=== PATIENT | male | born 1960 | race Hispanic/Latino ===

== ENCOUNTER 2018-01-17 01:00 | Emergency (ER) | payer MEDICAID, OTHER ==
[~2018-01-17 01:00] MED LIST: FURO40TA7 PO; PANT40TA25 PO; SPIR25TA PO
[2018-01-17 01:51] LABS: APPEARANCE,URINE Clear (CLEAR); BILIRUBIN,URINE Small (NEGATIVE); GLUCOSE, URINE (UA) Negative (NEGATIVE); KETONES,URINE Negative (NEGATIVE); LEUKOCYTE ESTERASE ,URINE Trace (NEGATIVE); NITRATE,URINE Positive (NEGATIVE); OCCULT BLOOD,URINE Large (NEGATIVE); PROTEIN,URINE POS 2+ (NEGATIVE)
[2018-01-17 01:52] LABS: AMPHET/METH SCREEN,URINE NEGATIVE (NEGATIVE); BARBITURATE SCREEN, URINE NEGATIVE (NEGATIVE); BENZODIAZEPINES SCREEN,URINE NEGATIVE (NEGATIVE); CANNABINOID SCREEN,URINE NEGATIVE (NEGATIVE); COCAINE SCREEN,URINE NEGATIVE (NEGATIVE); OPIATE SCREEN,URINE NEGATIVE (NEGATIVE); PHENCYCLIDINE SCREEN,URINE NEGATIVE (NEGATIVE)
[2018-01-17 01:53] LABS: COLOR,URINE Dark Yellow (YELLOW)
[2018-01-17 01:53] LABS: BASOPHILS % (AUTO) 0.5 % (0.0-5.0); HEMATOCRIT 28.9 % (42-54); LYMPHOCYTES % (AUTO) 20.9 % (21.0-51.0); MEAN CORPUSCULAR HEMOGLOBIN 32.5 pg (27.0-33.0); MEAN CORPUSCULAR HGB CONC 35.7 g/dL (32.0-36.0); MEAN CORPUSCULAR VOLUME 91.1 fL (79-99); MONOCYTES % (AUTO) 12.1 % (3.0-13.0); NEUTROPHILS % (AUTO) 57.5 % (40.0-77.0); PLATELET COUNT (AUTO) 79 K/uL (130-400); RED BLOOD CELL COUNT(AUTO) 3.17 MIL/uL (4.50-6.20); RED CELL DISTRIBUTION WIDTH 15.4 % (11.0-15.5); WHITE BLOOD COUNT (AUTO) 3.5 K/uL (4.8-10.8)
[2018-01-17 02:02] LABS: BACTERIA,URINE Few /HPF (None Seen); RBC,URINE 0-1 /HPF (0-1); WBC,URINE 0-1 /HPF (0-1)
[2018-01-17 02:03] LABS: CREATININE 1.2 mg/dL (0.5-1.5); POTASSIUM 4.4 mmol/L (3.5-5.1)
[2018-01-17 02:03] LABS: AMORPHOUS SEDIMENT,UR Few /LPF (None Seen); SQUAMOUS EPITHELIAL CELL,UR 0-2 /HPF (0-2)
[2018-01-17 02:07] LABS: BILIRUBIN,TOTAL 1.8 mg/dL (0.2-1.0); TOTAL PROTEIN, SERUM 6.7 g/dL (6.0-8.3)
[2018-01-17 02:25] LABS: INR 1.34 (0.85-1.15); PARTIAL THROMBOPLASTIN TIME 36.5 SEC (26.3-35.5)
[2018-01-17] MEDS ORDERED: FUROSEMIDE 10 MG/ML 2ML VIAL ONE (03:06)
[2018-01-17] MEDS ORDERED: FUROSEMIDE 10 MG/ML 4ML VIAL ONE (03:06)
== END 2018-01-17 06:28 | disposition home or self-care (01) ==
LOC: EDH 01:00
DX: E87.70 Fluid overload, unspecified (principal); K74.60 Unspecified cirrhosis of liver
CPT/HCPCS: 36415; 71045; 74176; 80053; 80305; 81001; 82140; 85025; 85610; 85651; 85730; 93005; 96374; 99285; G0480; J1940 ×2

== ENCOUNTER 2018-10-08 15:58 | Inpatient (IN) | payer MEDICAID, OTHER ==
[~2018-10-08] VITALS: Ht 165.1 cm; Wt 79.5 kg
[2018-10-08] MEDS ORDERED: ALBUMIN (HUMAN) 25% 100 ML IV ONE (16:50)
[2018-10-08] MEDS ORDERED: SODIUM CHLORIDE 0.9% 100 ML IV ONE (17:01)
[2018-10-08 17:07] LABS: BASOPHILS % (AUTO) 0.4 % (0.0-5.0); EOSINOPHILS % (AUTO) 2.8 % (0.0-8.0); LYMPHOCYTES % (AUTO) 9.5 % (21.0-51.0); MEAN CORPUSCULAR HEMOGLOBIN 30.7 pg (27.0-33.0); MONOCYTES % (AUTO) 7.6 % (3.0-13.0); NEUTROPHILS % (AUTO) 79.7 % (40.0-77.0); NUCLEATED RED BLOOD CELLS 0.1 % (0.0-0.19); PLATELET COUNT (AUTO) 70 K/uL (130-400); RED BLOOD CELL COUNT(AUTO) 3.56 MIL/uL (4.50-6.20); RED CELL DISTRIBUTION WIDTH 16.4 % (11.0-15.5); WHITE BLOOD COUNT (AUTO) 3.8 K/uL (4.8-10.8)
[2018-10-08 17:11] LABS: INR 1.34 (0.85-1.15); PARTIAL THROMBOPLASTIN TIME 35.7 SEC (26.3-35.5)
[2018-10-08 17:24] LABS: CARBON DIOXIDE 27 mmol/L (21-32); CHLORIDE 104 mmol/L (101-111); CREATININE 1.2 mg/dL (0.5-1.5); GLOMERULAR FILTR. RATE CALC 66 mL/min (>60); GLUCOSE,RANDOM 126 mg/dL (70-105); POTASSIUM 3.8 mmol/L (3.5-5.1); SODIUM SERUM 139 mmol/L (136-145); UREA NITROGEN, BLOOD 21 mg/dL (7-18)
[2018-10-08 17:35] LABS: ALANINE AMINOTRANSFERASE 84 U/L (12-78); ALBUMIN 2.3 g/dL (3.5-5.0); ASPARTATE AMINOTRANSFERASE 161 U/L (10-37); BILIRUBIN,TOTAL 4.1 mg/dL (0.2-1.0); CREATINE KINASE, TOTAL 115 U/L (21-232); MYOGLOBIN 65 ng/mL (10-92); TOTAL PROTEIN, SERUM 7.6 g/dL (6.0-8.3); TROPONIN I < 0.04 ng/mL (0.00-0.06)
[2018-10-08 17:51] LABS: AMMONIA 80 umol/L (11-32)
[2018-10-08 18:13] LABS: BILIRUBIN,URINE Moderate (NEGATIVE); COLOR,URINE Dark Yellow (YELLOW); GLUCOSE, URINE (UA) Negative (NEGATIVE); KETONES,URINE Negative (NEGATIVE); LEUKOCYTE ESTERASE ,URINE Trace (NEGATIVE); NITRATE,URINE Negative (NEGATIVE); OCCULT BLOOD,URINE Large (NEGATIVE); PROTEIN,URINE POS 2+ (NEGATIVE)
[2018-10-08 18:18] LABS: APPEARANCE,URINE HAZY (CLEAR)
[2018-10-08 18:25] LABS: PLATELET MORPHOLOGY COMMENT DECREASED
[2018-10-08 18:37] LABS: BACTERIA,URINE Rare /HPF (None Seen); MUCUS,URINE Few LPF (None Seen); SQUAMOUS EPITHELIAL CELL,UR 0-2 /HPF (0-2); WBC,URINE 0-1 /HPF (0-1)
[2018-10-08] MEDS ORDERED: ACETAMINOPHEN 325 MG TAB PO PRN ×2 (19:45)
[2018-10-08] MEDS ORDERED: ONDANSETRON HCL 4 MG/2 ML VIAL IV PRN (19:45)
[2018-10-08] MEDS ORDERED: MORPHINE SULFATE 4 MG/1ML SYG IV PRN (19:45)
[2018-10-08] MEDS ORDERED: SODIUM CHLORIDE 0.9% 1000ML 1,000 ML IV SCH (19:45)
[2018-10-08] MEDS ORDERED: LIDOCAINE HCL 2% VISCOUS 30 ML, MAG HYDROX/AL HYDROX/SIMETH 30 ML, BELLADONNA-PHENOBARB... PO PRN ×3 (19:45)
[2018-10-08] MEDS ORDERED: LIDOCAINE HCL 2% VISCOUS 60 ML, MAG HYDROX/AL HYDROX/SIMETH 60 ML, DICYCLOMINE HCL 40 MG PO PRN ×3 (20:00)
[2018-10-08] MEDS ORDERED: COMPOUND PO MISCELLANEOUS 1 EACH MISC MISC PRN (20:00)
[2018-10-08] MEDS ORDERED: IPRATROPIUM/ALBUTEROL SULFATE 3 ML SOLUTION IH ONE (20:05)
[2018-10-08 20:55] VITALS: BP 142/81
[2018-10-08] MEDS ORDERED: ENOXAPARIN SODIUM 30 MG/0.3 ML SQ SCH (21:00)
[2018-10-08] MEDS ORDERED: LACTULOSE 20 GM/30 ML UDCUP PO SCH (21:00)
[2018-10-08] MEDS: ALBUTEROL SULFATE 0.083% 2.5 MG/3 ML INH IH SCH (23:15)
[2018-10-08 23:30] VITALS: BP 142/81
[2018-10-08] MEDS: METOPROLOL TARTRATE 25 MG TAB PO SCH (23:49)
[2018-10-08] MEDS: FAMOTIDINE/PF 20 MG/2 ML VIAL IV SCH (23:50)
[2018-10-08] MEDS: NITROGLYCERIN 1GM/1 INCH PACKET TD SCH (23:51)
[2018-10-09] MEDS: NITROGLYCERIN 1GM/1 INCH PACKET TD SCH ×3 (03:45→20:06)
[2018-10-09 04:18] VITALS: BP 124/73
[2018-10-09] MEDS: ALBUTEROL SULFATE 0.083% 2.5 MG/3 ML INH IH SCH ×4 (06:18→23:02)
[2018-10-09 08:00] VITALS: BP 120/62
[2018-10-09] MEDS ORDERED: ASPIRIN 325 MG TABLET PO SCH (09:00)
[2018-10-09] MEDS: PANTOPRAZOLE SODIUM 40 MG TABLET.DR PO SCH (10:15)
[2018-10-09] MEDS: METOPROLOL TARTRATE 25 MG TAB PO SCH ×2 (10:16→20:07)
[2018-10-09] MEDS: LACTULOSE 20 GM/30 ML UDCUP PO SCH ×4 (10:16→20:06)
[2018-10-09] MEDS: SPIRONOLACTONE 25 MG TAB PO SCH (10:16)
[2018-10-09] MEDS: FAMOTIDINE/PF 20 MG/2 ML VIAL IV SCH ×2 (10:16→20:06)
[2018-10-09 12:00] VITALS: BP 120/66
[2018-10-09 16:00] VITALS: BP 128/63
[2018-10-09 20:00] VITALS: BP 122/63
[2018-10-09 23:37] VITALS: BP 121/76
[2018-10-10] VITALS (23 sets, daily range): BP systolic 98–145; BP diastolic 43–75
[2018-10-10] MEDS: NITROGLYCERIN 1GM/1 INCH PACKET TD SCH ×3 (04:01→19:45)
[2018-10-10 05:13] LABS: HEMATOCRIT 27.8 % (42-54); MEAN CORPUSCULAR HEMOGLOBIN 30.8 pg (27.0-33.0); MEAN CORPUSCULAR VOLUME 90.5 fL (79-99); PLATELET COUNT (AUTO) 51 K/uL (130-400); RED BLOOD CELL COUNT(AUTO) 3.07 MIL/uL (4.50-6.20); RED CELL DISTRIBUTION WIDTH 16.9 % (11.0-15.5); WHITE BLOOD COUNT (AUTO) 2.4 K/uL (4.8-10.8)
[2018-10-10 05:23] LABS: BASOPHILS % (MANUAL) 1 % (0-2); EOSINOPHILS % (MANUAL) 15 % (1-6); LYMPHOCYTES % (MANUAL) 16 % (22-44); MONOCYTES % (MANUAL) 6 % (2-9); SEGMENTED NEUTROPHILS % 62 % (40-70)
[2018-10-10 05:24] LABS: MAN.DIFF COMMENT-IMPRESSION MANUAL DIFFERENTIAL; PLATELET MORPHOLOGY COMMENT DECREASED
[2018-10-10 05:30] LABS: ALBUMIN 1.9 g/dL (3.5-5.0); BILIRUBIN,TOTAL 2.7 mg/dL (0.2-1.0); CREATININE 1.3 mg/dL (0.5-1.5); POTASSIUM 3.9 mmol/L (3.5-5.1); TOTAL PROTEIN, SERUM 6.2 g/dL (6.0-8.3)
[2018-10-10] MEDS: ALBUTEROL SULFATE 0.083% 2.5 MG/3 ML INH IH SCH ×4 (06:25→23:17)
[2018-10-10] MEDS: FAMOTIDINE/PF 20 MG/2 ML VIAL IV SCH ×2 (09:00→21:05)
[2018-10-10] MEDS: METOPROLOL TARTRATE 25 MG TAB PO SCH ×2 (09:01→21:06)
[2018-10-10] MEDS: LACTULOSE 20 GM/30 ML UDCUP PO SCH ×4 (09:01→21:05)
[2018-10-10] MEDS: PANTOPRAZOLE SODIUM 40 MG TABLET.DR PO SCH (09:01)
[2018-10-10] MEDS: SPIRONOLACTONE 25 MG TAB PO SCH (09:01)
[2018-10-10] MEDS: FUROSEMIDE 40 MG TABLET PO SCH (09:02)
[2018-10-11 00:38] VITALS: BP 116/59
[2018-10-11] MEDS: NITROGLYCERIN 1GM/1 INCH PACKET TD SCH ×2 (03:45→10:37)
[2018-10-11 04:44] VITALS: BP 117/58
[2018-10-11 05:56] LABS: HEMATOCRIT 28.3 % (42-54); MEAN CORPUSCULAR HEMOGLOBIN 31.2 pg (27.0-33.0); MEAN CORPUSCULAR HGB CONC 34.2 g/dL (32.0-36.0); MEAN CORPUSCULAR VOLUME 91.2 fL (79-99); NUCLEATED RED BLOOD CELLS 0.1 % (0.0-0.19); PLATELET COUNT (AUTO) 57 K/uL (130-400); RED BLOOD CELL COUNT(AUTO) 3.11 MIL/uL (4.50-6.20); RED CELL DISTRIBUTION WIDTH 16.8 % (11.0-15.5); WHITE BLOOD COUNT (AUTO) 2.2 K/uL (4.8-10.8)
[2018-10-11 06:10] LABS: CREATININE 1.2 mg/dL (0.5-1.5); POTASSIUM 3.8 mmol/L (3.5-5.1)
[2018-10-11] MEDS: ALBUTEROL SULFATE 0.083% 2.5 MG/3 ML INH IH SCH ×2 (06:39→11:30)
[2018-10-11 07:00] VITALS: BP 119/63
[2018-10-11 07:15] LABS: EOSINOPHILS % (MANUAL) 15 % (1-6); LYMPHOCYTES % (MANUAL) 15 % (22-44); MAN.DIFF COMMENT-IMPRESSION MANUAL DIFFERENTIAL; MONOCYTES % (MANUAL) 6 % (2-9); SEGMENTED NEUTROPHILS % 64 % (40-70)
[2018-10-11] MEDS: LACTULOSE 20 GM/30 ML UDCUP PO SCH ×2 (10:25→13:01)
[2018-10-11] MEDS: SPIRONOLACTONE 25 MG TAB PO SCH (10:26)
[2018-10-11] MEDS: METOPROLOL TARTRATE 25 MG TAB PO SCH (10:26)
[2018-10-11] MEDS: FAMOTIDINE/PF 20 MG/2 ML VIAL IV SCH (10:26)
[2018-10-11] MEDS: FUROSEMIDE 40 MG TABLET PO SCH (10:26)
[2018-10-11] MEDS: PANTOPRAZOLE SODIUM 40 MG TABLET.DR PO SCH (10:36)
[2018-10-11 11:00] VITALS: BP 123/62
[2018-10-11] MEDS ORDERED: LACT PO (14:09)
== END 2018-10-11 15:30 | disposition home or self-care (01) | DRG 442 ==
LOC: EDH 15:58 → EDHIP 15:59 → OBSVTOIN 15:59 → 3AH 20:35
PROVIDERS: ADMIT Hospitalist; ATTEND Hospitalist
PROC: 0DJ08ZZ Inspection of Upper Intestinal Tract, Via Natural or Artificial Opening Endoscopic (ICD-10-PCS; principal; 2018-10-10)
DX: K72.90 Hepatic failure, unspecified without coma (principal); D68.9 Coagulation defect, unspecified; E44.0 Moderate protein-calorie malnutrition; K76.6 Portal hypertension; D69.59 Other secondary thrombocytopenia; D73.1 Hypersplenism; E66.9 Obesity, unspecified; F10.10 Alcohol abuse, uncomplicated; K70.30 Alcoholic cirrhosis of liver without ascites; K21.0 Gastro-esophageal reflux disease with esophagitis; Y90.9 Presence of alcohol in blood, level not specified; K29.00 Acute gastritis without bleeding; K31.89 Other diseases of stomach and duodenum; D50.9 Iron deficiency anemia, unspecified; Z68.29 Body mass index [BMI] 29.0-29.9, adult
CPT/HCPCS: 36415; 43235; 71045; 74176; 80048; 80053; 81001; 82140; 82550; 83605; 83874; 84443; 84484; 85025; 85027; 85610; 85730; 87040; 87088; 87804; 93005; 94640; 94664; G0378; J1650; J2270; J3490; J7030; P9046

== ENCOUNTER 2018-11-30 16:39 | Inpatient (IN) | payer OTHER, MEDICAID | END 2018-12-03 16:12 | disposition home or self-care (01) | LOC: EDH 16:39 → EDHIP 16:40 → 3DH 21:30 | DX: K72.90 Hepatic failure, unspecified without coma (principal); R41.82 Altered mental status, unspecified ==

== ENCOUNTER 2019-01-09 01:04 | Inpatient (IN) | payer MEDICAID, OTHER ==
[~2019-01-09] VITALS: Ht 165.1 cm; Wt 74.8 kg
[~2019-01-09 01:04] MED LIST changes: +LACT PO
[2019-01-09 01:55] LABS: BASOPHILS % (AUTO) 0.6 % (0.0-5.0); EOSINOPHILS % (AUTO) 4.1 % (0.0-8.0); HEMATOCRIT 28.7 % (42-54); LYMPHOCYTES % (AUTO) 17.1 % (21.0-51.0); MEAN CORPUSCULAR HEMOGLOBIN 33.7 pg (27.0-33.0); MEAN CORPUSCULAR HGB CONC 35.7 g/dL (32.0-36.0); MEAN CORPUSCULAR VOLUME 94.3 fL (79-99); MONOCYTES % (AUTO) 5.2 % (3.0-13.0); PLATELET COUNT (AUTO) 75 K/uL (130-400); RED BLOOD CELL COUNT(AUTO) 3.04 MIL/uL (4.50-6.20); RED CELL DISTRIBUTION WIDTH 15.2 % (11.0-15.5); WHITE BLOOD COUNT (AUTO) 3.3 K/uL (4.8-10.8)
[2019-01-09 02:02] LABS: INR 1.35 (0.85-1.15); PARTIAL THROMBOPLASTIN TIME 35.3 SEC (26.3-35.5); PROTHROMBIN TIME 14.1 SEC (9.6-11.6)
[2019-01-09 02:14] LABS: CARBON DIOXIDE 21 mmol/L (21-32); CHLORIDE 109 mmol/L (101-111); CREATININE 1.3 mg/dL (0.5-1.5); GLOMERULAR FILTR. RATE CALC 60 mL/min (>60); GLUCOSE,RANDOM 107 mg/dL (70-105); POTASSIUM 4.3 mmol/L (3.5-5.1); SODIUM SERUM 140 mmol/L (136-145); UREA NITROGEN, BLOOD 11 mg/dL (7-18)
[2019-01-09 02:16] LABS: APPEARANCE,URINE Clear (CLEAR); BILIRUBIN,URINE Negative (NEGATIVE); COLOR,URINE Yellow (YELLOW); GLUCOSE, URINE (UA) Negative (NEGATIVE); KETONES,URINE Negative (NEGATIVE); LEUKOCYTE ESTERASE ,URINE Negative (NEGATIVE); NITRATE,URINE Negative (NEGATIVE); OCCULT BLOOD,URINE Small (NEGATIVE); PROTEIN,URINE Negative (NEGATIVE)
[2019-01-09 02:21] LABS: ALANINE AMINOTRANSFERASE 40 U/L (12-78); ALBUMIN 2.3 g/dL (3.5-5.0); ALCOHOL, BLOOD < 3 mg/dL (0-10); ASPARTATE AMINOTRANSFERASE 57 U/L (10-37); BILIRUBIN,TOTAL 3.3 mg/dL (0.2-1.0); CREATINE KINASE, TOTAL 126 U/L (21-232)
[2019-01-09 02:24] LABS: AMPHET/METH SCREEN,URINE NEGATIVE (NEGATIVE); BACTERIA,URINE None Seen /HPF (None Seen); BARBITURATE SCREEN, URINE NEGATIVE (NEGATIVE); BENZODIAZEPINES SCREEN,URINE NEGATIVE (NEGATIVE); CANNABINOID SCREEN,URINE NEGATIVE (NEGATIVE); COCAINE SCREEN,URINE NEGATIVE (NEGATIVE); MUCUS,URINE Few LPF (None Seen); OPIATE SCREEN,URINE NEGATIVE (NEGATIVE); PHENCYCLIDINE SCREEN,URINE NEGATIVE (NEGATIVE); RBC,URINE 0-1 /HPF (0-1); SQUAMOUS EPITHELIAL CELL,UR Few /HPF (0-2); WBC,URINE 0-1 /HPF (0-1)
[2019-01-09] MEDS ORDERED: HYDRALAZINE HCL 20 MG/ML VIAL IV PRN (04:00)
[2019-01-09] MEDS ORDERED: ACETAMINOPHEN 325 MG TAB PO PRN ×2 (04:00)
[2019-01-09] MEDS ORDERED: ONDANSETRON HCL 4 MG/2 ML VIAL IV PRN (04:00)
[2019-01-09] MEDS ORDERED: SODIUM CHLORIDE 0.9% 1000ML 1,000 ML IV ONE (04:33)
--- NOTE | 2019-01-09 07:37 | NUR ---
ER ADMIT PATIENT RECEIVED FROM ER VIA [facility] BED. HE IS AWAKE AND ALERT, ORIENTED TO NAME AND PLACE. HE WAS ORIENTED TO ROOM AND USE OF CALL LIGHT. BED IS IN LOWEST POSITION AND LOCKED. NO FAMILY IS PRESENT. WILL CONTINUE TO MONITOR.
[2019-01-09 07:45] VITALS: BP 148/80
[2019-01-09] MEDS ORDERED: ENOXAPARIN SODIUM 30 MG/0.3 ML SQ SCH (09:00)
[2019-01-09] MEDS ORDERED: LACTULOSE 20 GM/30 ML UDCUP PO SCH (09:00)
[2019-01-09] MEDS: FOLIC ACID 1 MG TABLET PO SCH (09:07)
[2019-01-09] MEDS: LACTULOSE 20 GM/30 ML UDCUP PO SCH ×3 (09:07→20:28)
[2019-01-09] MEDS: THIAMINE HCL 100 MG TABLET PO SCH (09:07)
[2019-01-09] MEDS: MULTIVITAMIN TABLET PO SCH (09:08)
[2019-01-09] MEDS: FAMOTIDINE/PF 20 MG/2 ML VIAL IV SCH (09:08)
[2019-01-09] MEDS: SODIUM CHLORIDE 0.9% 1000ML 1,000 ML IV SCH ×3 (09:08→23:22)
[2019-01-09 11:00] VITALS: BP 135/63
[2019-01-09 16:00] VITALS: BP 138/76
[2019-01-09 19:55] VITALS: BP 148/76
[2019-01-09 23:50] VITALS: BP 128/68
[2019-01-10 03:52] VITALS: BP 119/51
[2019-01-10 04:17] LABS: HEMATOCRIT 24.8 % (42-54); MEAN CORPUSCULAR HEMOGLOBIN 32.6 pg (27.0-33.0); MEAN CORPUSCULAR HGB CONC 34.8 g/dL (32.0-36.0); MEAN CORPUSCULAR VOLUME 93.7 fL (79-99); NUCLEATED RED BLOOD CELLS 0.1 % (0.0-0.19); PLATELET COUNT (AUTO) 60 K/uL (130-400); RED BLOOD CELL COUNT(AUTO) 2.65 MIL/uL (4.50-6.20); RED CELL DISTRIBUTION WIDTH 15.1 % (11.0-15.5); WHITE BLOOD COUNT (AUTO) 2.4 K/uL (4.8-10.8)
[2019-01-10 04:24] LABS: INR 1.46 (0.85-1.15); PARTIAL THROMBOPLASTIN TIME 42.4 SEC (26.3-35.5); PROTHROMBIN TIME 15.2 SEC (9.6-11.6)
[2019-01-10 04:28] LABS: ALBUMIN 1.7 g/dL (3.5-5.0); BILIRUBIN,TOTAL 2.8 mg/dL (0.2-1.0); CREATININE 1.1 mg/dL (0.5-1.5); POTASSIUM 3.7 mmol/L (3.5-5.1); TOTAL PROTEIN, SERUM 5.8 g/dL (6.0-8.3)
[2019-01-10 04:56] LABS: BAND NEUTROPHILS % (MANUAL) 4 % (0-2); EOSINOPHILS % (MANUAL) 4 % (1-6); LYMPHOCYTES % (MANUAL) 12 % (22-44); MAN.DIFF COMMENT-IMPRESSION MANUAL DIFFERENTIAL; MONOCYTES % (MANUAL) 4 % (2-9); PLATELET MORPHOLOGY COMMENT DECREASED; SEGMENTED NEUTROPHILS % 76 % (40-70)
[2019-01-10 08:05] VITALS: BP 133/66
[2019-01-10] MEDS: LACTULOSE 20 GM/30 ML UDCUP PO SCH ×3 (08:23→20:02)
[2019-01-10] MEDS: THIAMINE HCL 100 MG TABLET PO SCH (08:23)
[2019-01-10] MEDS: FOLIC ACID 1 MG TABLET PO SCH (08:23)
[2019-01-10] MEDS: FAMOTIDINE/PF 20 MG/2 ML VIAL IV SCH (08:23)
[2019-01-10] MEDS: MULTIVITAMIN TABLET PO SCH (08:23)
[2019-01-10 11:55] VITALS: BP 144/69
--- NOTE | 2019-01-10 12:13 | NUR ---
INITIAL patient too sleepy yesterday to provide info- today more alert. pt lives w spouse, indp of adls, has a walker that he has used in past- goes to a clinic in [facility]-"dr. abreu?" cannot remember name of clinic. has trouble paying for his meds as he is currently unemployed; 2 med card singlecare for [employer] and good rx given to pt and benefits briefly explained. dcp plan to home, CM to follow Addendum: 01/10/19 at 1223 by KATE ANAND RN CM Amended: Links added.
[2019-01-10 16:50] VITALS: BP 131/63
[2019-01-10 19:45] VITALS: BP 138/61
[2019-01-11] VITALS: BP 113/60
[2019-01-11 04:00] VITALS: BP 109/50
[2019-01-11 05:44] LABS: BASOPHILS % (AUTO) 0.4 % (0.0-5.0); EOSINOPHILS % (AUTO) 8.2 % (0.0-8.0); HEMATOCRIT 25.6 % (42-54); MEAN CORPUSCULAR HEMOGLOBIN 33.4 pg (27.0-33.0); MEAN CORPUSCULAR HGB CONC 35.7 g/dL (32.0-36.0); MEAN CORPUSCULAR VOLUME 93.7 fL (79-99); MONOCYTES % (AUTO) 7.3 % (3.0-13.0); NEUTROPHILS % (AUTO) 64.1 % (40.0-77.0); NUCLEATED RED BLOOD CELLS 0.1 % (0.0-0.19); PLATELET COUNT (AUTO) 62 K/uL (130-400); RED BLOOD CELL COUNT(AUTO) 2.73 MIL/uL (4.50-6.20); RED CELL DISTRIBUTION WIDTH 15.1 % (11.0-15.5); WHITE BLOOD COUNT (AUTO) 2.7 K/uL (4.8-10.8)
[2019-01-11 05:49] LABS: CREATININE 1.2 mg/dL (0.5-1.5); POTASSIUM 3.8 mmol/L (3.5-5.1)
[2019-01-11 07:30] VITALS: BP 135/71
[2019-01-11 07:30] LABS: EOSINOPHILS % (MANUAL) 11 % (1-6); LYMPHOCYTES % (MANUAL) 13 % (22-44); MAN.DIFF COMMENT-IMPRESSION MANUAL DIFFERENTIAL; MONOCYTES % (MANUAL) 6 % (2-9); SEGMENTED NEUTROPHILS % 70 % (40-70)
[2019-01-11] MEDS: LACTULOSE 20 GM/30 ML UDCUP PO SCH (08:46)
[2019-01-11] MEDS: MULTIVITAMIN TABLET PO SCH (08:46)
[2019-01-11] MEDS: FOLIC ACID 1 MG TABLET PO SCH (08:46)
[2019-01-11] MEDS: THIAMINE HCL 100 MG TABLET PO SCH (08:46)
[2019-01-11] MEDS: FAMOTIDINE/PF 20 MG/2 ML VIAL IV SCH (08:50)
--- NOTE | 2019-01-11 08:50 | NUR ---
DISCHARGE DISCHARGE TEACHING DONE WITH PATIENT USING TEACHBACK METHOD, VERBALIZED UNDERSTANDING. NO NOTED SOB OR DISTRESS. NO NEW PRESCRIPTIONS. PT AWARE OF NEED TO SCHEDULED PCP APPOINTMENT IN 3 DAYS. LIST OF AVAILABLE DOCTORS IN AREA GIVEN. IV REMOVED, CATH TIP INTACT. PENDING TO BE TRANSFERRED OUT VIA PRIVATE VEHICLE.
== END 2019-01-11 08:50 | disposition home or self-care (01) | DRG 441 ==
LOC: EDH 01:04 → EDHIP 01:05 → 4AH 07:00
PROVIDERS: ADMIT Hospitalist; ATTEND Hospitalist
DX: K72.90 Hepatic failure, unspecified without coma (principal); E43 Unspecified severe protein-calorie malnutrition; K74.60 Unspecified cirrhosis of liver; Z83.3 Family history of diabetes mellitus; Z82.49 Family history of ischemic heart disease and other diseases of the circulatory system; Z68.27 Body mass index [BMI] 27.0-27.9, adult
CPT/HCPCS: 36415; 80048; 80053; 80305; 81001; 82140; 82270; 82550; 84484; 85025; 85027; 85610; 85730; 93005; G0378; G0480; J3490; J7030

== ENCOUNTER 2019-07-01 20:59 | Inpatient (IN) | payer OTHER ==
[~2019-07-01] VITALS: Ht 166.4 cm; Wt 89.4 kg
[2019-07-01] MEDS ORDERED: CEFTRIAXONE SODIUM 1 GM ONE (21:33)
[2019-07-01] MEDS ORDERED: SODIUM CHLORIDE 0.9% 100 ML IV ONE ×2 (21:35→23:39)
[2019-07-01 21:44] LABS: BASOPHILS % (AUTO) 0.4 % (0.0-5.0); EOSINOPHILS % (AUTO) 4.7 % (0.0-8.0); HEMATOCRIT 32.2 % (42-54); LYMPHOCYTES % (AUTO) 12.1 % (21.0-51.0); MEAN CORPUSCULAR HEMOGLOBIN 32.4 pg (27.0-33.0); MEAN CORPUSCULAR HGB CONC 34.9 g/dL (32.0-36.0); MEAN CORPUSCULAR VOLUME 92.8 fL (79-99); MONOCYTES % (AUTO) 12.1 % (3.0-13.0); NEUTROPHILS % (AUTO) 70.7 % (40.0-77.0); PLATELET COUNT (AUTO) 96 K/uL (130-400); RED BLOOD CELL COUNT(AUTO) 3.47 MIL/uL (4.50-6.20); RED CELL DISTRIBUTION WIDTH 15.2 % (11.0-15.5); WHITE BLOOD COUNT (AUTO) 5.2 K/uL (4.8-10.8)
[2019-07-01 21:49] LABS: APPEARANCE,URINE Clear (CLEAR); BILIRUBIN,URINE Moderate (NEGATIVE); COLOR,URINE Dark Yellow (YELLOW); GLUCOSE, URINE (UA) Negative (NEGATIVE); KETONES,URINE Negative (NEGATIVE); LEUKOCYTE ESTERASE ,URINE Trace (NEGATIVE); NITRATE,URINE Negative (NEGATIVE); OCCULT BLOOD,URINE Large (NEGATIVE); PROTEIN,URINE POS 2+ mg/dL (NEGATIVE)
[2019-07-01 21:57] LABS: AMPHET/METH SCREEN,URINE NEGATIVE (NEGATIVE); BARBITURATE SCREEN, URINE NEGATIVE (NEGATIVE); BENZODIAZEPINES SCREEN,URINE NEGATIVE (NEGATIVE); CANNABINOID SCREEN,URINE NEGATIVE (NEGATIVE); COCAINE SCREEN,URINE NEGATIVE (NEGATIVE); OPIATE SCREEN,URINE NEGATIVE (NEGATIVE); PHENCYCLIDINE SCREEN,URINE NEGATIVE (NEGATIVE)
[2019-07-01 21:59] LABS: AMORPHOUS SEDIMENT,UR Few /LPF (None Seen); BACTERIA,URINE Few /HPF (None Seen); MUCUS,URINE Few LPF (None Seen)
[2019-07-01 22:01] LABS: CARBON DIOXIDE 27 mmol/L (21-32); CHLORIDE 107 mmol/L (101-111); CREATININE 1.4 mg/dL (0.5-1.5); GLOMERULAR FILTR. RATE CALC 55 mL/min (>60); GLUCOSE,RANDOM 135 mg/dL (70-105); INR 1.22 (0.85-1.15); PARTIAL THROMBOPLASTIN TIME 38.3 SEC (26.3-35.5); PROTHROMBIN TIME 12.7 SEC (9.6-11.6); SODIUM SERUM 140 mmol/L (136-145); UREA NITROGEN, BLOOD 22 mg/dL (7-18)
[2019-07-01 22:06] LABS: ALANINE AMINOTRANSFERASE 66 U/L (12-78); ALBUMIN 2.1 g/dL (3.5-5.0); ALCOHOL, BLOOD < 3 mg/dL (0-10); ASPARTATE AMINOTRANSFERASE 151 U/L (10-37); BILIRUBIN,DIRECT 2.3 mg/dL (0.0-0.3); BILIRUBIN,TOTAL 3.7 mg/dL (0.2-1.0); CREATINE KINASE, TOTAL 211 U/L (21-232); TOTAL PROTEIN, SERUM 7.1 g/dL (6.0-8.3)
[2019-07-01] MEDS ORDERED: OCTREOTIDE ACETATE 100 MCG/ML AMP ONE (22:16)
[2019-07-01 22:25] LABS: LIPASE 46092 U/L (114-286)
[2019-07-01 22:52] LABS: ABG HCO3 22.9 mmol/L (21.0-28.0); ABG OXYGEN SATURATION 97.7 % (95.0-99.0); ABG PCO2 32 mmHg (35-48)
[2019-07-01] MEDS ORDERED: MORPHINE SULFATE 2 MG/ML 1ML SYG ONE (23:15)
[2019-07-01] MEDS ORDERED: ONDANSETRON HCL 4 MG/2 ML VIAL ONE (23:24)
[2019-07-02] MEDS ORDERED: MORPHINE SULFATE 2 MG/ML 1ML SYG IV PRN (02:00)
[2019-07-02] MEDS ORDERED: LACTULOSE 20 GM/30 ML UDCUP PO PRN (02:00)
[2019-07-02] MEDS ORDERED: HYDRALAZINE HCL 20 MG/ML VIAL IV PRN (02:00)
[2019-07-02] MEDS ORDERED: MORPHINE SULFATE 4 MG/1ML SYG IV PRN (02:00)
[2019-07-02] MEDS ORDERED: ACETAMINOPHEN 325 MG TAB PO PRN ×2 (02:00)
[2019-07-02] MEDS ORDERED: ONDANSETRON HCL 4 MG/2 ML VIAL IV PRN (02:00)
[2019-07-02] MEDS ORDERED: LACTULOSE 20 GM/30 ML UDCUP ONE (04:31)
[2019-07-02 04:57] LABS: BASOPHILS % (AUTO) 0.3 % (0.0-5.0); EOSINOPHILS % (AUTO) 0.2 % (0.0-8.0); HEMATOCRIT 28.3 % (42-54); LYMPHOCYTES % (AUTO) 7.5 % (21.0-51.0); MEAN CORPUSCULAR HEMOGLOBIN 32.8 pg (27.0-33.0); MEAN CORPUSCULAR VOLUME 93.7 fL (79-99); MONOCYTES % (AUTO) 9.9 % (3.0-13.0); NEUTROPHILS % (AUTO) 82.1 % (40.0-77.0); PLATELET COUNT (AUTO) 74 K/uL (130-400); RED BLOOD CELL COUNT(AUTO) 3.02 MIL/uL (4.50-6.20); RED CELL DISTRIBUTION WIDTH 15.4 % (11.0-15.5); WHITE BLOOD COUNT (AUTO) 3.8 K/uL (4.8-10.8)
[2019-07-02 05:14] LABS: CREATININE 1.3 mg/dL (0.5-1.5); POTASSIUM 4.6 mmol/L (3.5-5.1)
[2019-07-02 05:18] LABS: ALBUMIN 1.7 g/dL (3.5-5.0); BILIRUBIN,TOTAL 5.3 mg/dL (0.2-1.0)
[2019-07-02] MEDS ORDERED: SODIUM CHLORIDE 0.9% 1000ML 1,000 ML IV ONE (06:50)
[2019-07-02 08:00] VITALS: BP 127/65
[2019-07-02] MEDS ORDERED: FAMOTIDINE/PF 20 MG/2 ML VIAL IV SCH ×2 (09:00)
[2019-07-02] MEDS ORDERED: METRONIDAZOLE 500 MG TABLET PO SCH (09:00)
[2019-07-02] MEDS: SODIUM CHLORIDE 0.9% 1000ML 1,000 ML IV SCH ×3 (09:20→21:02)
[2019-07-02] MEDS: CEFTRIAXONE SODIUM 1 GM IVP SCH ×2 (09:51→20:52)
[2019-07-02] MEDS ORDERED: GADODIAMIDE 10 MMOL/20 ML VIAL IV ONE (10:21)
[2019-07-02 11:25] VITALS: BP 147/77
[2019-07-02] MEDS: METRONIDAZOLE 500MG/100ML BAG 100 ML IV SCH ×2 (13:49→20:55)
--- NOTE | 2019-07-02 14:44 | NUR ---
D/C PLAN CM spoke to pt regarding d/c planning. Pt is ind. and lives with spouse. States he is ind. with ADL's. Spouse can assist if needed. Pt ambulates with cane. CM provided community resources packet. Plan to home. CM to f/u. Addendum: 07/02/19 at 1445 by SWEETIE BROWN CM Amended: Links added.
[2019-07-02 15:00] VITALS: BP 132/73
[2019-07-02 19:40] VITALS: BP 146/73
[2019-07-02] MEDS: FAMOTIDINE/PF 20 MG/2 ML VIAL IV SCH (20:53)
[2019-07-02 23:47] VITALS: BP 127/67
[2019-07-03] VITALS (23 sets, daily range): BP systolic 111–161; BP diastolic 53–90
[2019-07-03] MEDS: SODIUM CHLORIDE 0.9% 1000ML 1,000 ML IV SCH ×3 (01:58→13:02)
[2019-07-03 04:39] LABS: BASOPHILS % (AUTO) 0.6 % (0.0-5.0); EOSINOPHILS % (AUTO) 7.6 % (0.0-8.0); HEMATOCRIT 26.7 % (42-54); LYMPHOCYTES % (AUTO) 14.5 % (21.0-51.0); MEAN CORPUSCULAR HEMOGLOBIN 32.6 pg (27.0-33.0); MEAN CORPUSCULAR HGB CONC 34.5 g/dL (32.0-36.0); MEAN CORPUSCULAR VOLUME 94.4 fL (79-99); MONOCYTES % (AUTO) 11.4 % (3.0-13.0); NEUTROPHILS % (AUTO) 65.9 % (40.0-77.0); NUCLEATED RED BLOOD CELLS 0.1 % (0.0-0.19); PLATELET COUNT (AUTO) 73 K/uL (130-400); RED BLOOD CELL COUNT(AUTO) 2.83 MIL/uL (4.50-6.20); RED CELL DISTRIBUTION WIDTH 15.8 % (11.0-15.5); WHITE BLOOD COUNT (AUTO) 2.9 K/uL (4.8-10.8)
[2019-07-03 04:50] LABS: INR 1.46 (0.85-1.15); PARTIAL THROMBOPLASTIN TIME 42.2 SEC (26.3-35.5); PROTHROMBIN TIME 15.1 SEC (9.6-11.6)
[2019-07-03 04:58] LABS: ALBUMIN 1.7 g/dL (3.5-5.0); CREATININE 1.1 mg/dL (0.5-1.5); POTASSIUM 4.1 mmol/L (3.5-5.1); TOTAL PROTEIN, SERUM 5.9 g/dL (6.0-8.3)
[2019-07-03 05:07] LABS: BAND NEUTROPHILS % (MANUAL) 20 % (0-2); BASOPHILS % (MANUAL) 4 % (0-2); EOSINOPHILS % (MANUAL) 4 % (1-6); LYMPHOCYTES % (MANUAL) 16 % (22-44); MAN.DIFF COMMENT-IMPRESSION MANUAL DIFFERENTIAL; MONOCYTES % (MANUAL) 12 % (2-9); PLATELET MORPHOLOGY COMMENT DECREASED; SEGMENTED NEUTROPHILS % 44 % (40-70)
[2019-07-03] MEDS: METRONIDAZOLE 500MG/100ML BAG 100 ML IV SCH ×3 (05:28→20:42)
[2019-07-03] MEDS: FAMOTIDINE/PF 20 MG/2 ML VIAL IV SCH ×2 (07:34→20:42)
[2019-07-03] MEDS: CEFTRIAXONE SODIUM 1 GM IVP SCH ×2 (07:34→20:42)
--- NOTE | 2019-07-03 08:00 | NUR ---
ASSESSMENT PT IS AAOX3 DENIES CP DENIES SOB RESTING IN BED AT THIS TIME. BREATHING PATTERN IS EVEN AND UNLABORED. NS INFUSING ORDERED, IV ABX GIVEN. CALL LIGHT WITHIN REACH.
--- NOTE | 2019-07-03 11:30 | NUR ---
GI CONSULT PLACE WITH DR CRENSHAW, ORDERS RECEIVED FOR ERCP TODAY. CONSENT OBTAINED, DOWN VIA BED TO GI LAB.
[2019-07-03] MEDS ORDERED: IOHEXOL-350 50ML VIAL IV ONE (11:37)
[2019-07-03] MEDS ORDERED: DEXAMETHASONE SOD PHOSPHATE 10MG/ML 1ML VIAL ONE (11:39)
[2019-07-03] MEDS ORDERED: SUCCINYLCHOLINE 200MG/10ML SYR ONE (11:39)
[2019-07-03] MEDS ORDERED: PROPOFOL 10 MG/ML 20ML VIAL IV ONE (11:39)
[2019-07-03] MEDS ORDERED: NEOSTIGMINE 5MG/5ML SYR IV ONE (11:39)
[2019-07-03] MEDS ORDERED: GLYCOPYRROLATE 1 MG/5 ML SYRINGE ONE (11:39)
[2019-07-03] MEDS ORDERED: MIDAZOLAM HCL 1 MG/ML 2ML VIAL ONE (11:39)
[2019-07-03] MEDS ORDERED: LIDOCAINE PF 2% 5ML ABBOJECT ONE (11:39)
[2019-07-03] MEDS ORDERED: ONDANSETRON HCL 4 MG/2 ML VIAL ONE (11:40)
[2019-07-03] MEDS ORDERED: ROCURONIUM 10MG/1ML SYR 10 MG/ML ML ONE (11:40)
[2019-07-03] MEDS ORDERED: FENTANYL CITRATE PF 50 MCG/1 ML 2ML VIAL ONE (11:40)
[2019-07-03] MEDS: INDOMETHACIN 50 MG SUPP.RECT RC SCH (12:22)
[2019-07-03] MEDS: MEPERIDINE-PF 25 MG/ML SYG ONE ×2 (12:36→12:54)
--- NOTE | 2019-07-03 13:25 | NUR ---
RETURNED FROM GI LAB AAOX3 DENIES CP DENIES SOB DENIES NV. SITTING UPRIGHT IN BED. CALL LIGHT WITHIN REACH.
[2019-07-03] MEDS: GUAIFENESIN-CODEINE 5 ML SYRUP PO PRN ×2 (13:59→23:12)
--- NOTE | 2019-07-03 15:49 | NUR ---
RD NOTIFICATION HX: ALCOHOLISM. DIET: NPO. LBM: 06/30 NOTED. PT WITH 12% WEIGHT LOSS CHANGE IN 6 MONTHS. THERE IS PHYSICAL EVIDENCE OF FAT/ MUSCLE LOSS RESULTING IN PROTEIN CALORIE MALNUTRITION. 1+ PITTING EDEMA, SKIN INTACT NOTED. RD RECOMMENDS CONTINUE NPO STATUS ADVANCE DIET WHEN MEDICALLY FEASIBLE TO CLEAR LIQUIDS OR CONSIDER ALTERNATE MEANS OF NUTRITION (PPN) OFFER ENSURE CLEAR TID WHEN DIET IS ADVANCED TO CLEAR LIQUIDS MONITOR LABS AND BM DAILY RECOMMEND MULTIVITAMIN/ MINERAL SUPPLEMENTATION WITH THIAMINE DAILY RD WILL CONTINUE TO MONITOR AND F/U, THANK YOU. Addendum: 07/03/19 at [address] Amended: Links added.
[2019-07-04] VITALS: BP 131/60
[2019-07-04 03:44] LABS: BASOPHILS % (AUTO) 0.2 % (0.0-5.0); EOSINOPHILS % (AUTO) 6.6 % (0.0-8.0); MEAN CORPUSCULAR VOLUME 94.5 fL (79-99); MONOCYTES % (AUTO) 8.9 % (3.0-13.0); NEUTROPHILS % (AUTO) 71.3 % (40.0-77.0); PLATELET COUNT (AUTO) 78 K/uL (130-400); RED BLOOD CELL COUNT(AUTO) 2.76 MIL/uL (4.50-6.20); RED CELL DISTRIBUTION WIDTH 14.8 % (11.0-15.5); WHITE BLOOD COUNT (AUTO) 3.2 K/uL (4.8-10.8)
[2019-07-04 04:12] LABS: ALBUMIN 1.5 g/dL (3.5-5.0); BILIRUBIN,TOTAL 1.8 mg/dL (0.2-1.0); POTASSIUM 4.4 mmol/L (3.5-5.1); TOTAL PROTEIN, SERUM 5.6 g/dL (6.0-8.3)
[2019-07-04 04:38] VITALS: BP 131/74
[2019-07-04 05:09] LABS: HEPATITIS A ANTIBODY IGM Negative (Negative); HEPATITIS B CORE IGM Negative (Negative); HEPATITIS Bs ANTIGEN SCREEN P Negative (Negative)
[2019-07-04] MEDS: SODIUM CHLORIDE 0.9% 1000ML 1,000 ML IV SCH ×2 (05:22→12:40)
[2019-07-04] MEDS: METRONIDAZOLE 500MG/100ML BAG 100 ML IV SCH ×2 (05:22→12:40)
[2019-07-04] MEDS: INDOMETHACIN 50 MG SUPP.RECT RC SCH (07:05)
[2019-07-04 07:45] VITALS: BP 113/71
[2019-07-04] MEDS: FAMOTIDINE/PF 20 MG/2 ML VIAL IV SCH (07:47)
[2019-07-04] MEDS: CEFTRIAXONE SODIUM 1 GM IVP SCH (07:47)
[2019-07-04] MEDS: GUAIFENESIN-CODEINE 5 ML SYRUP PO PRN ×3 (07:52→22:46)
--- NOTE | 2019-07-04 08:00 | NUR ---
ASSESSMENT PT IS AAOX3 DENIES CP DENIES SOB RESTING IN BED AT THIS TIME. BREATHING PATTERN IS EVEN AND UNLABORED. DR IQBAL ROUNDED, SAW PATIENT.
[2019-07-04 11:39] VITALS: BP 128/71
[2019-07-04] MEDS: METRONIDAZOLE 500 MG TABLET PO SCH ×2 (12:30→20:24)
--- NOTE | 2019-07-04 13:00 | NUR ---
STATUS SITTING UP IN CHAIR, NO COMPLAINTS AT THIS TIME, CALL LIGHT WITHIN REACH.
[2019-07-04 15:35] VITALS: BP 114/67
--- NOTE | 2019-07-04 16:45 | NUR ---
STATUS SITTING UP IN CHAIR, NO COMPLAINTS VISITOR IS AT BEDSIDE, CALL LIGHT WITHIN REACH.
[2019-07-04 20:16] VITALS: BP 111/54
[2019-07-04] MEDS: FAMOTIDINE 20MG TAB 20 MG TAB PO SCH (20:24)
[2019-07-05 00:22] VITALS: BP 119/62
[2019-07-05 04:11] VITALS: BP 133/77
[2019-07-05 04:15] LABS: MEAN CORPUSCULAR HEMOGLOBIN 32.4 pg (27.0-33.0); MEAN CORPUSCULAR HGB CONC 34.6 g/dL (32.0-36.0); MEAN CORPUSCULAR VOLUME 93.8 fL (79-99); PLATELET COUNT (AUTO) 102 K/uL (130-400); RED BLOOD CELL COUNT(AUTO) 2.77 MIL/uL (4.50-6.20); RED CELL DISTRIBUTION WIDTH 15.1 % (11.0-15.5)
[2019-07-05 04:32] LABS: ALBUMIN 1.5 g/dL (3.5-5.0); BILIRUBIN,TOTAL 1.6 mg/dL (0.2-1.0); CREATININE 0.9 mg/dL (0.5-1.5); POTASSIUM 4.2 mmol/L (3.5-5.1); TOTAL PROTEIN, SERUM 5.4 g/dL (6.0-8.3)
[2019-07-05] MEDS: METRONIDAZOLE 500 MG TABLET PO SCH ×2 (04:59→10:55)
[2019-07-05 05:23] LABS: BAND NEUTROPHILS % (MANUAL) 1 % (0-2); BASOPHILS % (MANUAL) 1 % (0-2); EOSINOPHILS % (MANUAL) 7 % (1-6); LYMPHOCYTES % (MANUAL) 9 % (22-44); METAMYELOCYTES % 1 % (0-0); MONOCYTES % (MANUAL) 5 % (2-9); REACTIVE LYMPHOCYTES 1 % (0-0); SEGMENTED NEUTROPHILS % 75 % (40-70)
[2019-07-05 05:24] LABS: MAN.DIFF COMMENT-IMPRESSION MANUAL DIFFERENTIAL; PLATELET MORPHOLOGY COMMENT SLIGHTLY DECREASED
[2019-07-05] MEDS: GUAIFENESIN-CODEINE 5 ML SYRUP PO PRN (05:45)
[2019-07-05] MEDS: SODIUM CHLORIDE 0.9% 1000ML 1,000 ML IV SCH (05:49)
[2019-07-05 08:03] VITALS: BP 147/55
[2019-07-05] MEDS ORDERED: LEVOFLOXACIN 500 MG TABLET PO SCH (09:00)
[2019-07-05] MEDS: FAMOTIDINE 20MG TAB 20 MG TAB PO SCH (10:55)
[2019-07-05 11:45] VITALS: BP 128/69
--- NOTE | 2019-07-05 15:01 | NUR ---
DISCHARGE INSTRUCTIONS GIVEN, PIV REMOVED AND INTACT, DISCHARGED HOME TO FAMILY VEHICLE VIA WHEELCHAIR.
== END 2019-07-05 14:30 | disposition home or self-care (01) | DRG 444 ==
LOC: EDH 20:59 → EDHIP 21:00 → 2DH 07-02 08:10
PROVIDERS: ADMIT Family Medicine; ATTEND Family Medicine
PROC: 0FC98ZZ Extirpation of Matter from Common Bile Duct, Via Natural or Artificial Opening Endoscopic (ICD-10-PCS; principal; 2019-07-03)
DX: K80.70 Calculus of gallbladder and bile duct without cholecystitis without obstruction (principal); K85.10 Biliary acute pancreatitis without necrosis or infection; D68.9 Coagulation defect, unspecified; N17.9 Acute kidney failure, unspecified; N39.0 Urinary tract infection, site not specified; E44.0 Moderate protein-calorie malnutrition; K70.30 Alcoholic cirrhosis of liver without ascites; Z83.3 Family history of diabetes mellitus; Z82.49 Family history of ischemic heart disease and other diseases of the circulatory system; Z68.32 Body mass index [BMI] 32.0-32.9, adult
CPT/HCPCS: 36415; 36600; 43262; 43264; 71045; 74176; 74181; 74330; 76705; 80048; 80053; 80061; 80074; 80076; 80305; 81001; 82140; 82150; 82270; 82550; 82803; 83605; 83690; 84484; 85025; 85027; 85610; 85730; 86850; 86900; 86901; 93005; A4606; A9579; C1769; C1773; G0378; G0480; J0330; J0696; J1100; J2001; J2175; J2250; J2270; J2354; J2405; J2704; J2710; J3010; J3490; J7030; Q9967

== ENCOUNTER 2019-08-08 16:20 | Inpatient (IN) | payer OTHER ==
[~2019-08-08] VITALS: Ht 157.5 cm; Wt 77.1 kg
[~2019-08-08 16:20] MED LIST changes: -PANT40TA25 PO; -SPIR25TA PO
[2019-08-08 16:49] LABS: BASOPHILS % (AUTO) 0.8 % (0.0-5.0); EOSINOPHILS % (AUTO) 6.5 % (0.0-8.0); HEMATOCRIT 30.9 % (42-54); LYMPHOCYTES % (AUTO) 14.4 % (21.0-51.0); MEAN CORPUSCULAR HEMOGLOBIN 31.6 pg (27.0-33.0); MEAN CORPUSCULAR HGB CONC 33.7 g/dL (32.0-36.0); MEAN CORPUSCULAR VOLUME 93.9 fL (79-99); NEUTROPHILS % (AUTO) 68.7 % (40.0-77.0); PLATELET COUNT (AUTO) 68 K/uL (130-400); RED BLOOD CELL COUNT(AUTO) 3.29 MIL/uL (4.50-6.20); RED CELL DISTRIBUTION WIDTH 14.3 % (11.0-15.5); WHITE BLOOD COUNT (AUTO) 3.5 K/uL (4.8-10.8)
[2019-08-08 17:08] LABS: CREATININE 1.1 mg/dL (0.5-1.5); INR 1.35 (0.85-1.15); PARTIAL THROMBOPLASTIN TIME 38.5 SEC (26.3-35.5); POTASSIUM 3.9 mmol/L (3.5-5.1)
[2019-08-08 17:12] LABS: ALBUMIN 2.2 g/dL (3.5-5.0); TOTAL PROTEIN, SERUM 6.9 g/dL (6.0-8.3)
[2019-08-08] MEDS ORDERED: PROCHLORPERAZINE EDISYLATE 10 MG/2 ML VIAL ONE (17:14)
[2019-08-08] MEDS ORDERED: DiphenhydrAMINE HCL 50 MG/ML VIAL ONE (17:14)
[2019-08-08] MEDS ORDERED: MEPERIDINE-PF 25 MG/ML SYG ONE (17:15)
[2019-08-08] MEDS ORDERED: FAMOTIDINE/PF 20 MG/2 ML VIAL IV ONE ×2 (17:16→21:23)
[2019-08-08] MEDS ORDERED: IOHEXOL-350 75 ML VIAL IV ONE (17:30)
[2019-08-08] MEDS ORDERED: LIDOCAINE HCL 2% VISCOUS 15 ML UDCUP ONE (17:37)
[2019-08-08] MEDS ORDERED: MAG HYDROX/AL HYDROX/SIMETH ES 30 ML SUSP UDCUP ONE (17:37)
[2019-08-08] MEDS: FAMOTIDINE/PF 20 MG/2 ML VIAL IV SCH (21:00)
[2019-08-08] MEDS ORDERED: HYDRALAZINE HCL 20 MG/ML VIAL IV PRN (21:00)
[2019-08-08] MEDS: LACTULOSE 20 GM/30 ML UDCUP PO SCH (21:00)
[2019-08-08] MEDS ORDERED: LACTULOSE 20 GM/30 ML UDCUP ONE (21:01)
[2019-08-08] MEDS ORDERED: ZOSYN 3.375GM+NS 50ML 50 ML IV ONE (21:01)
[2019-08-08] MEDS ORDERED: ACETAMINOPHEN 325 MG TAB PO PRN (21:15)
[2019-08-08] MEDS ORDERED: HYDROMORPHONE HCL 2 MG/ML VIAL IVP PRN (21:15)
[2019-08-08 21:33] LABS: AMPHET/METH SCREEN,URINE NEGATIVE (NEGATIVE); BARBITURATE SCREEN, URINE NEGATIVE (NEGATIVE); BENZODIAZEPINES SCREEN,URINE NEGATIVE (NEGATIVE); CANNABINOID SCREEN,URINE NEGATIVE (NEGATIVE); COCAINE SCREEN,URINE NEGATIVE (NEGATIVE); OPIATE SCREEN,URINE NEGATIVE (NEGATIVE); PHENCYCLIDINE SCREEN,URINE NEGATIVE (NEGATIVE)
--- NOTE | 2019-08-08 22:35 | NUR ---
Admission note: Admitted to floor via stretcher. Pt opened eyes through sound, confused / lethargic. Was able to transfer bed to bed with a little assistance. Positioned in bed according to pt. comfort. VS checked and recorded. Assessment done. ( see CPOE flow chart for full assessment). Plan of care initiated. Attached to telemetry at bedside with SR. Kept monitored and watched for any unusual changes. Distress / discomfort not noted. Cared for and needs attended.
[2019-08-08 22:57] VITALS: BP 160/70
[2019-08-08] MEDS ORDERED: FERR325T22 PO (23:05)
[2019-08-08] MEDS ORDERED: LACT10SO9 PO (23:05)
[2019-08-08] MEDS ORDERED: SPIR50TA5 PO (23:05)
[2019-08-09] VITALS: BP 160/70
[2019-08-09 04:00] VITALS: BP 133/69
[2019-08-09] MEDS: LACTULOSE 20 GM/30 ML UDCUP PO SCH ×4 (05:22→21:23)
[2019-08-09 06:18] LABS: BASOPHILS % (AUTO) 0.2 % (0.0-5.0); EOSINOPHILS % (AUTO) 0.2 % (0.0-8.0); HEMATOCRIT 30.5 % (42-54); LYMPHOCYTES % (AUTO) 6.5 % (21.0-51.0); MEAN CORPUSCULAR HEMOGLOBIN 31.2 pg (27.0-33.0); MEAN CORPUSCULAR HGB CONC 33.4 g/dL (32.0-36.0); MEAN CORPUSCULAR VOLUME 93.3 fL (79-99); NEUTROPHILS % (AUTO) 82.3 % (40.0-77.0); PLATELET COUNT (AUTO) 72 K/uL (130-400); RED BLOOD CELL COUNT(AUTO) 3.27 MIL/uL (4.50-6.20); RED CELL DISTRIBUTION WIDTH 14.1 % (11.0-15.5); WHITE BLOOD COUNT (AUTO) 5.2 K/uL (4.8-10.8)
[2019-08-09 06:24] LABS: HEMOGLOBIN A1C 4.1 % (4.0-6.0)
[2019-08-09 06:36] LABS: ALBUMIN 2.1 g/dL (3.5-5.0); BILIRUBIN,DIRECT 0.7 mg/dL (0.0-0.3); BILIRUBIN,TOTAL 2.3 mg/dL (0.2-1.0); CREATININE 1.2 mg/dL (0.5-1.5); TOTAL PROTEIN, SERUM 6.8 g/dL (6.0-8.3)
[2019-08-09 07:30] VITALS: BP 162/80
[2019-08-09] MEDS ORDERED: ZOSYN 3.375GM+NS 50ML 50 ML IV SCH (09:00)
[2019-08-09] MEDS: FAMOTIDINE/PF 20 MG/2 ML VIAL IV SCH ×2 (10:18→21:22)
[2019-08-09 11:00] VITALS: BP 176/76
--- NOTE | 2019-08-09 13:10 | NUR ---
DCP CM met with pt discussed dc plans. Pt is independent prior to admission, lives at home w/spouse. Pt has a cane. Denies any other equipments/services. Feels safe to go back home, spouse able to assist with transportation and needs as necessary. DC plan to home once stable. CM to cont to follow up. Addendum: 08/09/19 at 1312 by LOBO PARKER LVN CM Amended: Links added.
[2019-08-09] MEDS: METRONIDAZOLE 500MG/100ML BAG 100 ML IV SCH ×2 (14:30→21:23)
[2019-08-09] MEDS: ZOSYN 3.375GM+NS 50ML 50 ML IV SCH ×2 (15:16→21:52)
[2019-08-09 16:00] VITALS: BP 150/68
[2019-08-09 20:00] VITALS: BP 148/71
[2019-08-10] VITALS (7 sets, daily range): BP systolic 135–150; BP diastolic 63–78
[2019-08-10] MEDS ORDERED: LACTULOSE 20 GM/30 ML UDCUP PO SCH (03:00)
[2019-08-10] MEDS: METRONIDAZOLE 500MG/100ML BAG 100 ML IV SCH ×3 (05:24→20:39)
[2019-08-10] MEDS: ZOSYN 3.375GM+NS 50ML 50 ML IV SCH ×3 (06:33→21:44)
[2019-08-10] MEDS: LACTULOSE 20 GM/30 ML UDCUP PO SCH ×3 (08:37→20:39)
[2019-08-10] MEDS: FERROUS SULFATE 325 MG TABLET.DR PO SCH (08:37)
[2019-08-10] MEDS: FAMOTIDINE/PF 20 MG/2 ML VIAL IV SCH ×2 (08:37→20:39)
[2019-08-10] MEDS: FUROSEMIDE 40 MG TABLET PO SCH (08:37)
[2019-08-10 08:40] LABS: BASOPHILS % (AUTO) 0.5 % (0.0-5.0); EOSINOPHILS % (AUTO) 1.5 % (0.0-8.0); HEMATOCRIT 29.6 % (42-54); LYMPHOCYTES % (AUTO) 12.8 % (21.0-51.0); MEAN CORPUSCULAR HEMOGLOBIN 31.7 pg (27.0-33.0); MEAN CORPUSCULAR HGB CONC 33.1 g/dL (32.0-36.0); MEAN CORPUSCULAR VOLUME 95.8 fL (79-99); MONOCYTES % (AUTO) 9.7 % (3.0-13.0); PLATELET COUNT (AUTO) 50 K/uL (130-400); RED BLOOD CELL COUNT(AUTO) 3.09 MIL/uL (4.50-6.20); RED CELL DISTRIBUTION WIDTH 14.3 % (11.0-15.5); WHITE BLOOD COUNT (AUTO) 4.1 K/uL (4.8-10.8)
[2019-08-10 09:00] LABS: ALBUMIN 1.8 g/dL (3.5-5.0); BILIRUBIN,TOTAL 2.7 mg/dL (0.2-1.0); CREATININE 1.3 mg/dL (0.5-1.5); POTASSIUM 3.6 mmol/L (3.5-5.1)
[2019-08-10] MEDS ORDERED: SPIRONOLACTONE 25 MG TAB PO SCH (09:00)
[2019-08-10] MEDS: SPIRONOLACTONE 25 MG TAB PO SCH (20:39)
[2019-08-11 03:00] VITALS: BP 121/59
[2019-08-11] MEDS: LACTULOSE 20 GM/30 ML UDCUP PO SCH ×3 (03:14→14:36)
[2019-08-11] MEDS: METRONIDAZOLE 500MG/100ML BAG 100 ML IV SCH ×2 (05:11→14:36)
[2019-08-11 05:33] LABS: EOSINOPHILS % (AUTO) 6.8 % (0.0-8.0); HEMATOCRIT 28.1 % (42-54); LYMPHOCYTES % (AUTO) 17.7 % (21.0-51.0); MEAN CORPUSCULAR HEMOGLOBIN 31.8 pg (27.0-33.0); MEAN CORPUSCULAR HGB CONC 33.1 g/dL (32.0-36.0); MEAN CORPUSCULAR VOLUME 96.2 fL (79-99); MONOCYTES % (AUTO) 9.2 % (3.0-13.0); PLATELET COUNT (AUTO) 48 K/uL (130-400); RED BLOOD CELL COUNT(AUTO) 2.92 MIL/uL (4.50-6.20); RED CELL DISTRIBUTION WIDTH 14.1 % (11.0-15.5); WHITE BLOOD COUNT (AUTO) 2.9 K/uL (4.8-10.8)
[2019-08-11 06:07] LABS: ALBUMIN 1.7 g/dL (3.5-5.0); BILIRUBIN,TOTAL 2.1 mg/dL (0.2-1.0); CREATININE 1.4 mg/dL (0.5-1.5); POTASSIUM 3.2 mmol/L (3.5-5.1); TOTAL PROTEIN, SERUM 5.8 g/dL (6.0-8.3)
[2019-08-11] MEDS: ZOSYN 3.375GM+NS 50ML 50 ML IV SCH ×2 (06:16→14:36)
[2019-08-11 08:09] VITALS: BP 153/79
[2019-08-11] MEDS: FAMOTIDINE/PF 20 MG/2 ML VIAL IV SCH (09:14)
[2019-08-11] MEDS: SPIRONOLACTONE 25 MG TAB PO SCH (09:14)
[2019-08-11] MEDS: FUROSEMIDE 40 MG TABLET PO SCH (09:14)
[2019-08-11] MEDS: FERROUS SULFATE 325 MG TABLET.DR PO SCH (09:15)
[2019-08-11 12:43] VITALS: BP 149/75
[2019-08-11] MEDS ORDERED: FURO40TA7 PO (14:47)
[2019-08-11] MEDS ORDERED: LACT10SO9 PO (14:47)
[2019-08-11] MEDS ORDERED: SPIR50TA5 PO (14:47)
[2019-08-11 16:56] VITALS: BP 133/69
--- NOTE | 2019-08-11 19:15 | NUR ---
DISCHARGED NOW USING TEACH BACK. SPOUSE AND DAUGHTER PRESENT AND ALL VERBALIZE UNDERSTANDING OF MEDICATIONS.ADM. AND SIDE EFFECTS. ALSO GIVEN WORK EXCUSE FOR 2 DAYS HE REQUESTED.INST. TO CONT. LACTULOSE AND TO FOLLOW UP WITH PCP IN A WEEK. SALINE LOCK AND TELE-MONITOR REMOVED PRIOR TO DC
== END 2019-08-11 19:07 | disposition home or self-care (01) | DRG 441 ==
LOC: EDH 16:20 → EDHIP 16:21 → 3BH 22:05
PROVIDERS: ADMIT Family Medicine; ATTEND Family Medicine
DX: K72.90 Hepatic failure, unspecified without coma (principal); E43 Unspecified severe protein-calorie malnutrition; D61.818 Other pancytopenia; I85.10 Secondary esophageal varices without bleeding; R18.8 Other ascites; B19.20 Unspecified viral hepatitis C without hepatic coma; E11.65 Type 2 diabetes mellitus with hyperglycemia; I10 Essential (primary) hypertension; K57.90 Diverticulosis of intestine, part unspecified, without perforation or abscess without bleeding; K80.20 Calculus of gallbladder without cholecystitis without obstruction; K82.8 Other specified diseases of gallbladder; K74.60 Unspecified cirrhosis of liver; Z68.31 Body mass index [BMI] 31.0-31.9, adult
CPT/HCPCS: 36415; 74177; 76705; 80048; 80053; 80076; 80305; 82140; 83036; 83690; 85025; 85610; 85730; 93005; G0378; G0480; J0780; J1170; J1200; J2175; J2543; J3490; Q9967

== ENCOUNTER 2019-08-21 19:24 | Inpatient (IN) | payer OTHER ==
[~2019-08-21] VITALS: Ht 157.5 cm; Wt 79.3 kg
[~2019-08-21 19:24] MED LIST changes: +FERR325T22 PO; -LACT PO; +LACT10SO9 PO; +SPIR50TA5 PO
[2019-08-21] MEDS ORDERED: SODIUM CHLORIDE 0.9% 1000ML 1,000 ML IV ONE (20:11)
[2019-08-21] MEDS ORDERED: ONDANSETRON HCL 4 MG/2 ML VIAL ONE (20:11)
[2019-08-21 20:22] LABS: BASOPHILS % (AUTO) 0.7 % (0.0-5.0); EOSINOPHILS % (AUTO) 3.5 % (0.0-8.0); LYMPHOCYTES % (AUTO) 11.8 % (21.0-51.0); MEAN CORPUSCULAR HEMOGLOBIN 31.5 pg (27.0-33.0); MEAN CORPUSCULAR HGB CONC 34.1 g/dL (32.0-36.0); MEAN CORPUSCULAR VOLUME 92.5 fL (79-99); MONOCYTES % (AUTO) 7.4 % (3.0-13.0); NEUTROPHILS % (AUTO) 76.2 % (40.0-77.0); PLATELET COUNT (AUTO) 74 K/uL (130-400); RED BLOOD CELL COUNT(AUTO) 3.46 MIL/uL (4.50-6.20); RED CELL DISTRIBUTION WIDTH 13.9 % (11.0-15.5); WHITE BLOOD COUNT (AUTO) 4.6 K/uL (4.8-10.8)
[2019-08-21 20:24] LABS: APPEARANCE,URINE Clear (CLEAR); BILIRUBIN,URINE Negative (NEGATIVE); COLOR,URINE Dark Yellow (YELLOW); GLUCOSE, URINE (UA) Negative (NEGATIVE); KETONES,URINE Negative (NEGATIVE); LEUKOCYTE ESTERASE ,URINE Negative (NEGATIVE); NITRATE,URINE Negative (NEGATIVE); OCCULT BLOOD,URINE Moderate (NEGATIVE); PROTEIN,URINE POS 2+ mg/dL (NEGATIVE)
[2019-08-21 20:37] LABS: BACTERIA,URINE Few /HPF (None Seen); MUCUS,URINE Moderate LPF (None Seen); SQUAMOUS EPITHELIAL CELL,UR Few /HPF (0-2)
[2019-08-21 20:39] LABS: INR 1.31 (0.85-1.15); PARTIAL THROMBOPLASTIN TIME 36.3 SEC (26.3-35.5); PROTHROMBIN TIME 13.6 SEC (9.6-11.6)
[2019-08-21 20:45] LABS: CREATININE 1.1 mg/dL (0.5-1.5); POTASSIUM 4.5 mmol/L (3.5-5.1)
[2019-08-21 20:49] LABS: ALBUMIN 2.2 g/dL (3.5-5.0); BILIRUBIN,TOTAL 1.9 mg/dL (0.2-1.0); TOTAL PROTEIN, SERUM 7.2 g/dL (6.0-8.3)
[2019-08-21] MEDS ORDERED: ACETAMINOPHEN 325 MG TAB ONE (21:25)
[2019-08-21] MEDS ORDERED: LACTULOSE 20 GM/30 ML UDCUP PO PRN (23:30)
[2019-08-21] MEDS ORDERED: ONDANSETRON HCL 4 MG/2 ML VIAL IV PRN (23:30)
[2019-08-22] MEDS ORDERED: LACTULOSE 20 GM/30 ML UDCUP ONE (00:04)
[2019-08-22 02:45] VITALS: BP 153/76
[2019-08-22] MEDS ORDERED: OMEP40CA13 PO (02:45)
[2019-08-22] MEDS: MORPHINE SULFATE 2 MG/ML 1ML SYG IV PRN ×2 (02:59→08:35)
[2019-08-22 04:39] LABS: BASOPHILS % (AUTO) 0.2 % (0.0-5.0); EOSINOPHILS % (AUTO) 0.6 % (0.0-8.0); HEMATOCRIT 32.1 % (42-54); LYMPHOCYTES % (AUTO) 6.9 % (21.0-51.0); MEAN CORPUSCULAR HEMOGLOBIN 31.7 pg (27.0-33.0); MEAN CORPUSCULAR HGB CONC 34.3 g/dL (32.0-36.0); MEAN CORPUSCULAR VOLUME 92.5 fL (79-99); MONOCYTES % (AUTO) 6.1 % (3.0-13.0); NEUTROPHILS % (AUTO) 85.8 % (40.0-77.0); PLATELET COUNT (AUTO) 72 K/uL (130-400); RED BLOOD CELL COUNT(AUTO) 3.47 MIL/uL (4.50-6.20); RED CELL DISTRIBUTION WIDTH 13.9 % (11.0-15.5); WHITE BLOOD COUNT (AUTO) 5.2 K/uL (4.8-10.8)
[2019-08-22 04:47] LABS: CREATININE 1.1 mg/dL (0.5-1.5); POTASSIUM 4.9 mmol/L (3.5-5.1)
[2019-08-22 08:04] VITALS: BP 172/80
[2019-08-22] MEDS ORDERED: HYDRALAZINE HCL 20 MG/ML VIAL IM PRN (08:30)
[2019-08-22] MEDS: LACTULOSE 20 GM/30 ML UDCUP PO SCH ×3 (08:34→16:16)
[2019-08-22] MEDS: FUROSEMIDE 40 MG TABLET PO SCH (08:35)
[2019-08-22] MEDS: FAMOTIDINE 20MG TAB 20 MG TAB PO SCH (08:35)
[2019-08-22] MEDS: SPIRONOLACTONE 25 MG TAB PO SCH (09:00)
[2019-08-22] MEDS: FERROUS SULFATE 325 MG TABLET.DR PO SCH (09:00)
[2019-08-22] MEDS ORDERED: METOPROLOL TARTRATE 25 MG TAB PO SCH (09:30)
[2019-08-22 10:49] VITALS: BP 157/77
[2019-08-22] MEDS ORDERED: MORPHINE SULFATE 2 MG/ML 1ML SYG IV PRN (11:30)
--- NOTE | 2019-08-22 13:33 | NUR ---
DCP CM met with pt and family discussed dc plans. As per daughter pt is independent prior to admission, lives at home with spouse and daughter. Pt has a cane and walker. Denies any equipments/services. Feels safe to go back home, spouse and daughter able to assist with transportation and needs. Pt is a self pay, C assisting, given [employer] packet. Dc plan to home once stable. CM to cont to follow up. Addendum: 08/22/19 at 1335 by LOBO PARKER LVN CM Amended: Links added.
[2019-08-22] MEDS ORDERED: ACETAMINOPHEN 325 MG TAB PO PRN (16:15)
[2019-08-22 16:16] VITALS: BP 135/59
[2019-08-22] MEDS ORDERED: CEFTRIAXONE SODIUM 1 GM IVP SCH (17:30)
[2019-08-22 19:50] VITALS: BP 142/67
[2019-08-22] MEDS: CEFTRIAXONE SODIUM 1 GM IVP SCH (21:28)
[2019-08-22] MEDS: HYDROCODONE/ACETAMINOPHEN 5/325 MG TAB PO PRN (21:28)
[2019-08-22] MEDS: METOPROLOL TARTRATE 25 MG TAB PO SCH (21:28)
[2019-08-22 23:24] VITALS: BP 134/71
[2019-08-23] MEDS: LACTULOSE 20 GM/30 ML UDCUP PO SCH ×4 (01:25→23:46)
[2019-08-23 03:54] VITALS: BP 150/70
[2019-08-23 06:23] LABS: BASOPHILS % (AUTO) 0.3 % (0.0-5.0); EOSINOPHILS % (AUTO) 1.4 % (0.0-8.0); HEMATOCRIT 30.2 % (42-54); LYMPHOCYTES % (AUTO) 9.3 % (21.0-51.0); MEAN CORPUSCULAR HEMOGLOBIN 31.3 pg (27.0-33.0); MEAN CORPUSCULAR HGB CONC 33.4 g/dL (32.0-36.0); MEAN CORPUSCULAR VOLUME 93.5 fL (79-99); MONOCYTES % (AUTO) 10.2 % (3.0-13.0); NEUTROPHILS % (AUTO) 78.3 % (40.0-77.0); PLATELET COUNT (AUTO) 54 K/uL (130-400); RED BLOOD CELL COUNT(AUTO) 3.23 MIL/uL (4.50-6.20); RED CELL DISTRIBUTION WIDTH 13.8 % (11.0-15.5); WHITE BLOOD COUNT (AUTO) 6.5 K/uL (4.8-10.8)
[2019-08-23 06:33] LABS: ALBUMIN 1.7 g/dL (3.5-5.0); CREATININE 1.1 mg/dL (0.5-1.5); TOTAL PROTEIN, SERUM 5.9 g/dL (6.0-8.3)
[2019-08-23 08:00] VITALS: BP 154/78
[2019-08-23] MEDS: FERROUS SULFATE 325 MG TABLET.DR PO SCH (08:52)
[2019-08-23] MEDS: FUROSEMIDE 40 MG TABLET PO SCH (08:52)
[2019-08-23] MEDS: SPIRONOLACTONE 25 MG TAB PO SCH (08:52)
[2019-08-23] MEDS: HYDROCODONE/ACETAMINOPHEN 5/325 MG TAB PO PRN ×2 (08:52→16:02)
[2019-08-23] MEDS: METOPROLOL TARTRATE 25 MG TAB PO SCH ×2 (08:53→19:54)
[2019-08-23] MEDS: FAMOTIDINE 20MG TAB 20 MG TAB PO SCH (08:53)
[2019-08-23 11:44] VITALS: BP 144/81
[2019-08-23 16:00] VITALS: BP 142/68
[2019-08-23 19:00] VITALS: BP 96/56
[2019-08-23] MEDS: CEFTRIAXONE SODIUM 1 GM IVP SCH (19:54)
[2019-08-24] VITALS: BP 102/52
[2019-08-24 03:52] LABS: BASOPHILS % (AUTO) 0.2 % (0.0-5.0); EOSINOPHILS % (AUTO) 4.1 % (0.0-8.0); HEMATOCRIT 27.4 % (42-54); LYMPHOCYTES % (AUTO) 14.6 % (21.0-51.0); MEAN CORPUSCULAR HGB CONC 33.2 g/dL (32.0-36.0); MEAN CORPUSCULAR VOLUME 93.2 fL (79-99); MONOCYTES % (AUTO) 13.4 % (3.0-13.0); NEUTROPHILS % (AUTO) 67.5 % (40.0-77.0); PLATELET COUNT (AUTO) 49 K/uL (130-400); RED BLOOD CELL COUNT(AUTO) 2.94 MIL/uL (4.50-6.20); RED CELL DISTRIBUTION WIDTH 13.8 % (11.0-15.5); WHITE BLOOD COUNT (AUTO) 4.9 K/uL (4.8-10.8)
[2019-08-24 04:00] VITALS: BP 106/53
[2019-08-24 04:37] LABS: ALBUMIN 1.5 g/dL (3.5-5.0); BILIRUBIN,TOTAL 2.3 mg/dL (0.2-1.0); CREATININE 1.9 mg/dL (0.5-1.5); POTASSIUM 4.3 mmol/L (3.5-5.1); TOTAL PROTEIN, SERUM 5.5 g/dL (6.0-8.3)
[2019-08-24 07:56] VITALS: BP 102/51
[2019-08-24] MEDS: SPIRONOLACTONE 25 MG TAB PO SCH (09:07)
[2019-08-24] MEDS: LACTULOSE 20 GM/30 ML UDCUP PO SCH ×3 (09:07→23:35)
[2019-08-24] MEDS: METOPROLOL TARTRATE 25 MG TAB PO SCH ×2 (09:08→20:03)
[2019-08-24] MEDS: FUROSEMIDE 40 MG TABLET PO SCH (09:09)
[2019-08-24] MEDS: FERROUS SULFATE 325 MG TABLET.DR PO SCH (09:09)
[2019-08-24] MEDS: FAMOTIDINE 20MG TAB 20 MG TAB PO SCH (09:09)
[2019-08-24 12:00] VITALS: BP 127/66
[2019-08-24 14:04] LABS: CREATININE 1.2 mg/dL (0.5-1.5); POTASSIUM 4.1 mmol/L (3.5-5.1)
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
[2019-08-24 16:25] VITALS: BP 127/61
[2019-08-24] MEDS: LEVOFLOXACIN 500 MG/D5W 100 ML 100 ML IV SCH (16:54)
[2019-08-24 20:00] VITALS: BP 127/65
[2019-08-24] MEDS: CEFTRIAXONE SODIUM 1 GM IVP SCH (20:03)
[2019-08-25] VITALS: BP 112/58
[2019-08-25 04:00] VITALS: BP 105/63
[2019-08-25 05:35] LABS: BASOPHILS % (AUTO) 0.6 % (0.0-5.0); EOSINOPHILS % (AUTO) 6.1 % (0.0-8.0); HEMATOCRIT 25.7 % (42-54); LYMPHOCYTES % (AUTO) 17.3 % (21.0-51.0); MEAN CORPUSCULAR HEMOGLOBIN 31.4 pg (27.0-33.0); MEAN CORPUSCULAR HGB CONC 33.9 g/dL (32.0-36.0); MEAN CORPUSCULAR VOLUME 92.8 fL (79-99); MONOCYTES % (AUTO) 10.9 % (3.0-13.0); NEUTROPHILS % (AUTO) 64.8 % (40.0-77.0); PLATELET COUNT (AUTO) 74 K/uL (130-400); RED BLOOD CELL COUNT(AUTO) 2.77 MIL/uL (4.50-6.20); RED CELL DISTRIBUTION WIDTH 13.6 % (11.0-15.5); WHITE BLOOD COUNT (AUTO) 3.1 K/uL (4.8-10.8)
[2019-08-25 06:15] LABS: ALBUMIN 1.4 g/dL (3.5-5.0); BILIRUBIN,TOTAL 1.4 mg/dL (0.2-1.0); CREATININE 1.3 mg/dL (0.5-1.5); POTASSIUM 4.1 mmol/L (3.5-5.1); TOTAL PROTEIN, SERUM 5.4 g/dL (6.0-8.3)
[2019-08-25 07:30] VITALS: BP 112/54
[2019-08-25] MEDS: LACTULOSE 20 GM/30 ML UDCUP PO SCH (08:27)
[2019-08-25] MEDS: FUROSEMIDE 40 MG TABLET PO SCH (08:28)
[2019-08-25] MEDS: METOPROLOL TARTRATE 25 MG TAB PO SCH (08:28)
[2019-08-25] MEDS: FAMOTIDINE 20MG TAB 20 MG TAB PO SCH (08:28)
[2019-08-25] MEDS: SPIRONOLACTONE 25 MG TAB PO SCH (08:28)
[2019-08-25] MEDS: FERROUS SULFATE 325 MG TABLET.DR PO SCH (08:28)
[2019-08-25 11:21] VITALS: BP 115/62
[2019-08-25] MEDS: LEVOFLOXACIN 500 MG/D5W 100 ML 100 ML IV SCH (11:43)
--- NOTE | 2019-08-25 13:42 | NUR ---
Nutrition Intervention: Nutrition consult based on Alb 1.4. Pt. on GI Soft [place] diet with good p.o. intake, as per pt. Labs reviewed(Alb 1.4, Ammonia 43, T. Bili 1.4, BUN 27). Spoke with pt. regarding protein supplementation and pt. agreed to try. LBM: 08/24/2019. SR-21, loose. BMI: 32, Obesity grade 1. Pt. educated on Low sodium diet and provided with education material. Pt. verbalized understanding. Recommendations: 1) Rec. 2gm Na GI Soft bland diet. 2) Rec. 30ml ProMod QD with B'fast meal. 3) Low Sodium diet education given to patient. 4) Continue to monitor pt's nutritional status. 5) Consult RD as nutrition concerns arise. Addendum: 08/25/19 at [address] Amended: Links added.
[2019-08-25] MEDS ORDERED: LEVO500T89 PO (15:55)
[2019-08-25] MEDS ORDERED: SPIR50TA5 PO (15:55)
[2019-08-25] MEDS ORDERED: OMEP40CA13 PO (15:55)
[2019-08-25] MEDS ORDERED: FURO40TA7 PO (15:55)
[2019-08-25] MEDS ORDERED: LACT10SO9 PO (15:55)
[2019-08-25 16:05] VITALS: BP 109/57
== END 2019-08-25 16:33 | disposition home or self-care (01) | DRG 442 ==
LOC: EDH 19:24 → EDHIP 19:25 → 4BH 08-22 00:27
PROVIDERS: ADMIT Family Medicine; ATTEND Family Medicine
DX: K72.90 Hepatic failure, unspecified without coma (principal); D61.818 Other pancytopenia; K76.6 Portal hypertension; K70.30 Alcoholic cirrhosis of liver without ascites; K82.8 Other specified diseases of gallbladder; M47.815 Spondylosis without myelopathy or radiculopathy, thoracolumbar region; K80.20 Calculus of gallbladder without cholecystitis without obstruction; Z83.3 Family history of diabetes mellitus; Z82.49 Family history of ischemic heart disease and other diseases of the circulatory system
CPT/HCPCS: 36415; 71046; 73560; 74176; 74181; 76705; 80048; 80053; 81001; 82140; 82150; 82550; 83690; 84484; 85025; 85610; 85730; 87040; 93005; G0378; G0480; J0696; J1956; J2405; J7030